=== PATIENT | male | born 1945 | race Caucasian/White ===

== ENCOUNTER 2018-04-23 11:56 | Outpatient (CLI) | payer OTHER ==
[~2018-04-23 11:56] MED LIST: CIPRO500 MG PO; NABUMETONE500 MG PO; NEXIUM20 MG/PACK PO; PERCOCET 5/3251 TAB PO; PROTONIX20 MG; PROTONIX40 MG; RECTICARE30 GM TP; SIMVASTATIN10 MG; SYNTHROID125 MCG PO; SYNTHROID50 MCG; VITAMIN B-650 M1 PO; ZANTAC150 MG PO
== END 2018-04-23 12:30 | disposition home or self-care (01) ==
LOC: SONOGRAMA 11:56
DX: N20.0 Calculus of kidney (principal)

== ENCOUNTER 2019-03-20 08:28 | Outpatient (CLI) | payer OTHER ==
[~2019-03-20] VITALS: Ht 172.7 cm; Wt 80.3 kg
[2019-03-20] MEDS ORDERED: FLONASE16 GM NASAL (10:51)
== END 2019-03-20 11:10 | disposition home or self-care (01) ==
LOC: OFIC 805 08:28
DX: J31.0 Chronic rhinitis (principal); J34.2 Deviated nasal septum; H69.90 Unspecified Eustachian tube disorder, unspecified ear; H90.3 Sensorineural hearing loss, bilateral; R05 Cough

== ENCOUNTER 2022-05-19 08:10 | Outpatient (CLI) | payer OTHER ==
[~2022-05-19 08:10] MED LIST changes: +FLONASE16 GM NASAL
== END 2022-05-19 08:23 | disposition home or self-care (01) ==
LOC: RX STUDY 08:10
PROVIDERS: ATTEND Internal Medicine Gastroenterology
DX: K21.9 Gastro-esophageal reflux disease without esophagitis (principal); K44.9 Diaphragmatic hernia without obstruction or gangrene